=== PATIENT | female | born 1960 | race Caucasian/White ===

== ENCOUNTER → 2017-09-01 10:44 | Outpatient (CLI) | payer MEDICAID | END | disposition home or self-care (01) | LOC: D.MRI 10:44 | DX: M54.16 Radiculopathy, lumbar region (principal) ==

== ENCOUNTER 2017-12-29 21:07 | Emergency (ER) | payer MEDICAID ==
[~2017-12-29] VITALS: Ht 167.6 cm; Wt 109.1 kg
[2017-12-29 21:26] VITALS: Ht 167.6 cm; Wt 109.1 kg
[2017-12-29] MEDS ORDERED: CYCLOBENZAPRINE10 MG (21:28)
[2017-12-29] MEDS ORDERED: CELEBREX50 MG (21:28)
[2017-12-29] MEDS ORDERED: ZESTRIL10 MG PO (21:28)
[2017-12-29] MEDS ORDERED: OMEPRAZOLE20 M1 (21:28)
[2017-12-29] MEDS ORDERED: AMBIEN5 MG (21:28)
[2017-12-29] MEDS ORDERED: NORCO 10-325 TA1 TAB (21:28)
[2017-12-29] MEDS ORDERED: GABAP (21:29)
[2017-12-29] MEDS ORDERED: VALIUM 2 MG TAB2 MG PO (22:00)
[2017-12-29] MEDS ORDERED: ULTRAM50 MG PO (22:00)
[2017-12-29 22:20] VITALS: BP 126/79
== END 2017-12-29 22:20 | disposition home or self-care (01) ==
LOC: D.ER 21:07
DX: S29.012A Strain of muscle and tendon of back wall of thorax, initial encounter (principal); V43.52XA Car driver injured in collision with other type car in traffic accident, initial encounter; Y93.89 Activity, other specified; Y92.410 Unspecified street and highway as the place of occurrence of the external cause; M62.838 Other muscle spasm; I10 Essential (primary) hypertension

== ENCOUNTER 2018-02-09 16:40 | Emergency (ER) | payer MEDICAID ==
[~2018-02-09] VITALS: Ht 160 cm; Wt 99.5 kg
[~2018-02-09 16:40] MED LIST: AMBIEN5 MG; CELEBREX50 MG; CYCLOBENZAPRINE10 MG; GABAP; NORCO 10-325 TA1 TAB; OMEPRAZOLE20 M1; ULTRAM50 MG PO; VALIUM 2 MG TAB2 MG PO; ZESTRIL10 MG PO
[2018-02-09 16:46] VITALS: Ht 160 cm; Wt 99.5 kg
[2018-02-09] MEDS ORDERED: NEURONTIN 300300 MG PO ×2 (16:48→19:34)
[2018-02-09] MEDS ORDERED: HYDROCHLOROTH12.5 M1 (16:49)
[2018-02-09] MEDS ORDERED: ZIPSOR25 MG PO (19:34)
[2018-02-09 20:29] VITALS: BP 135/85
== END 2018-02-09 20:30 | disposition home or self-care (01) ==
LOC: D.ER 16:40
DX: M48.061 Spinal stenosis, lumbar region without neurogenic claudication (principal); M54.12 Radiculopathy, cervical region; M48.02 Spinal stenosis, cervical region; V43.52XA Car driver injured in collision with other type car in traffic accident, initial encounter; Y93.89 Activity, other specified; Y92.410 Unspecified street and highway as the place of occurrence of the external cause

== ENCOUNTER 2018-02-21 18:55 | Emergency (ER) | payer MEDICAID ==
[~2018-02-21] VITALS: Ht 160 cm; Wt 100.7 kg
[~2018-02-21 18:55] MED LIST changes: +HYDROCHLOROTH12.5 M1; +NEURONTIN 300300 MG PO; +ZIPSOR25 MG PO
[2018-02-21 19:24] VITALS: Ht 160 cm; Wt 100.7 kg
[2018-02-21 21:55] VITALS: BP 145/98
== END 2018-02-21 21:56 | disposition home or self-care (01) ==
LOC: D.ER 18:55
DX: M54.31 Sciatica, right side (principal); I10 Essential (primary) hypertension

== ENCOUNTER 2018-03-03 20:22 | Emergency (ER) | payer MEDICAID ==
[~2018-03-03] VITALS: Ht 160 cm; Wt 100.9 kg
[2018-03-03 20:25] VITALS: Ht 160 cm; Wt 100.9 kg
[2018-03-04] MEDS ORDERED: AUGMENTIN 875-11 TAB PO (01:44)
[2018-03-04 01:58] VITALS: BP 131/88
== END 2018-03-04 01:58 | disposition home or self-care (01) ==
LOC: D.ER 20:22
DX: K11.20 Sialoadenitis, unspecified (principal); G95.19 Other vascular myelopathies; I10 Essential (primary) hypertension

== ENCOUNTER 2018-08-31 23:12 | Emergency (ER) | payer MEDICAID ==
[~2018-08-31] VITALS: Ht 160 cm; Wt 98.2 kg
[~2018-08-31 23:12] MED LIST changes: +AUGMENTIN 875-11 TAB PO
[2018-08-31 23:17] VITALS: BP 133/80; Ht 160 cm; Wt 98.2 kg
[2018-08-31] MEDS ORDERED: HYDROCODON-ACE1 EA10 PO (23:19)
== END 2018-09-01 01:05 | disposition home or self-care (01) ==
LOC: D.ER 23:12
DX: S80.02XA Contusion of left knee, initial encounter (principal); W18.30XA Fall on same level, unspecified, initial encounter; Y93.89 Activity, other specified; Y92.89 Other specified places as the place of occurrence of the external cause

== ENCOUNTER → 2018-10-25 12:14 | Outpatient (CLI) | payer MEDICAID ==
[2018-08-31 23:17] VITALS: BMI 38.3
[~2018-10-25 12:14] MED LIST changes: +HYDROCODON-ACE1 EA10 PO
== END | disposition home or self-care (01) ==
LOC: D.MRI 09:00
PROVIDERS: ATTEND Orthopaedic Surgery
DX: S83.242D Other tear of medial meniscus, current injury, left knee, subsequent encounter (principal)

== ENCOUNTER 2018-12-30 06:52 | Day surgery (SDC) | payer MEDICAID ==
[2018-12-24 14:18] LABS: HEMATOCRIT 40.3 % (36.0-48.0); HEMOGLOBIN 13.6 g/dL (12-16); LYMPHOCYTES 46.9 % (15-50); MCH 29.9 pg (26.0-34.0); MCHC 33.7 g/dL (31.0-37.0); MCV 88.6 fL (80.0-100.0); MEAN PLATELET VOLUME 10.1 fL (7.4-10.4); NEUTROPHILS 43.3 % (40-80); PLATELET COUNT 202 10x3/uL (130-400); RBC 4.55 10x6/uL (4.00-5.40); RDW 12.9 % (11.5-14.5); WBC 5.9 10x3/uL (4.8-10.8)
[2018-12-24 14:32] LABS: CALCIUM 8.9 mg/dL (8.5-10.1); CARBON DIOXIDE 27.8 mmol/L (21.0-32.0); CREATININE - SERUM 1.1 mg/dL (0.6-1.3); POTASSIUM - SERUM 3.8 mmol/L (3.5-5.1)
[~2018-12-30] VITALS: Ht 162.6 cm; Wt 96.6 kg
[~2018-12-30 06:52] MED LIST changes: -HYDROCHLOROTH12.5 M1; +HYDROCHLOROTH12.5 M1 PO; +LISINOPRIL10 MG PO; +PEPCID AC20 MG PO
[2018-12-30 07:31] VITALS: BP 122/81; Ht 162.6 cm; Wt 96.6 kg
--- NOTE | 2018-12-30 14:45 | NUR ---
4150 ALL DISCHARGE INSTRUCTIONS GIVEN. VOICES UNDERSTANDING. TAKEN OUT VIA W/C AND ASSISTED TO CAR WITH DAUGHTER. ADVISED TO CALL OR COME BACK IF ANY PROBLEMS.
== END 2018-12-30 14:35 | disposition home or self-care (01) ==
LOC: D.OPS 06:52 → D.PAN 07:30 → D.OPS 08:30
PROVIDERS: ATTEND Orthopaedic Surgery
DX: S83.282A Other tear of lateral meniscus, current injury, left knee, initial encounter (principal); X58.XXXA Exposure to other specified factors, initial encounter

== ENCOUNTER → 2019-09-20 21:18 | Outpatient (CLI) | payer MEDICAID ==
[2018-12-30 07:31] VITALS: BMI 36.6
[2019-09-20 22:16] LABS: BASOPHILS 0.8 % (0-2); EOSINOPHILS 2.5 % (0-7); HEMOGLOBIN 13.3 g/dL (12-16); IMMATURE GRANULOCYTES 0.8 % (0-5); LYMPHOCYTES 33.6 % (15-50); MCH 29.9 pg (26.0-34.0); MCHC 32.4 g/dL (31.0-37.0); MCV 92.1 fL (80.0-100.0); MEAN PLATELET VOLUME 10.8 fL (7.4-10.4); MONOCYTES 7.5 % (2-11); NEUTROPHILS 54.8 % (40-80); RBC 4.45 10x6/uL (4.00-5.40); RDW 13.5 % (11.5-14.5)
[2019-09-20 22:32] LABS: URIC ACID 5.5 mg/dL (2.6-7.2)
[2019-09-20 23:08] LABS: PLATELET COUNT 270 10x3/uL (130-400)
[2019-09-20 23:22] LABS: ERYTHROCYTE SEDIMENTATION RATE 5 mm/hr (0-30)
[2019-09-22 09:12] LABS: ANA REFLEX - DIRECT Negative (Negative)
== END | disposition home or self-care (01) ==
LOC: D.LABREF 21:18
PROVIDERS: ATTEND Clinical Nurse Specialist Family Health
DX: M13.0 Polyarthritis, unspecified (principal)

== ENCOUNTER 2020-04-29 21:34 | Emergency (ER) | payer OTHER ==
[~2020-04-29] VITALS: Ht 162.6 cm; Wt 100.5 kg
[~2020-04-29 21:34] MED LIST changes: +AMOXICILLIN500 M1 PO; +TYLENOL W/CODEI1 TAB PO
[2020-04-29 21:36] VITALS: BP 132/81; Ht 162.6 cm; Wt 100.5 kg
[2020-04-29] MEDS ORDERED: TRAZODONE HCL50 MG PO (21:41)
[2020-04-29] MEDS ORDERED: VOLTAREN100 GM TOPICAL (22:06)
== END 2020-04-29 22:33 | disposition home or self-care (01) ==
LOC: D.ER 21:34
DX: M25.561 Pain in right knee (principal); M17.11 Unilateral primary osteoarthritis, right knee; I10 Essential (primary) hypertension

== ENCOUNTER → 2020-06-11 10:53 | Outpatient (CLI) | payer BC ==
[2020-04-29 21:36] VITALS: BMI 38.0
[~2020-06-11 10:53] MED LIST changes: +TRAZODONE HCL50 MG PO; +VOLTAREN100 GM TOPICAL
== END | disposition home or self-care (01) ==
LOC: D.MRI 10:53
PROVIDERS: ATTEND Clinical Nurse Specialist Family Health
DX: M25.561 Pain in right knee (principal)

== ENCOUNTER 2020-07-12 06:05 | Day surgery (SDC) | payer BC ==
[~2020-07-12] VITALS: Ht 162.6 cm; Wt 96.6 kg
[~2020-07-12 06:05] MED LIST changes: +OMEPRAZOLE20 M1 PO
[2020-07-12 06:39] LABS: BASOPHILS 1.2 % (0-2); EOSINOPHILS 2.9 % (0-7); HEMATOCRIT 38.1 % (36.0-48.0); HEMOGLOBIN 13.1 g/dL (12-16); LYMPHOCYTES 42.5 % (15-50); MCH 30.3 pg (26.0-34.0); MCHC 34.2 g/dL (31.0-37.0); MCV 88.4 fL (80.0-100.0); MEAN PLATELET VOLUME 8.3 fL (7.4-10.4); MONOCYTES 10.1 % (2-11); NEUTROPHILS 43.3 % (40-80); PLATELET COUNT 219 10x3/uL (130-400); RBC 4.31 10x6/uL (4.00-5.40); RDW 15.7 % (11.5-14.5); WBC 5.5 10x3/uL (4.8-10.8)
[2020-07-12 06:49] LABS: ANION GAP 11.4 mmol/L (8-16); CALCIUM 8.7 mg/dL (8.5-10.1); CARBON DIOXIDE 27.4 mmol/L (21.0-32.0); CREATININE - SERUM 0.9 mg/dL (0.6-1.3); POTASSIUM - SERUM 3.8 mmol/L (3.5-5.1)
[2020-07-12 07:20] VITALS: BP 130/84; Ht 162.6 cm; Wt 96.6 kg
--- NOTE | 2020-07-12 12:20 | NUR ---
SPRITE AND ICE PACK TAKEN TO PT BY LUANN Rg DR AT BEDSIDE 1310 DC TEACHING COMPLETE, PT AND DTR VERBALIZE UNDERSTANDING. 1315 PIV REMOVED WITH CATHETER INTACT, DTR HELPING PT TO DRESS. 1340 PT DC'D VIA WC WITH ALL BELONGINGS AND DC PACKET BY THIS NURSE TO POV WITH DTR DRIVING.
--- NOTE | 2020-07-13 09:13 | OP ---
PATIENT NAME: MARTHA REYES MEDICAL RECORD: [id number] :60 LOCATION:[facility] ADMISSION DATE: SURGEON: ROSS MARTINEZ MD DATE OF OPERATION: 07/12/2020 PREOPERATIVE DIAGNOSES: 1. Right knee pain. 2. Chondromalacia. 3. Lateral meniscus tear. POSTOPERATIVE DIAGNOSES: 1. Right knee pain. 2. Chondromalacia. 3. Lateral meniscus tear. PROCEDURE PERFORMED: Right knee scope with partial lateral meniscectomy, chondroplasty, limited synovectomy and removal of loose body. INDICATIONS FOR THE PROCEDURE: The patient is a 59-year-old female with history of right knee pain. She has been having pain for some time now and symptoms are getting worse. MRI was obtained that showed evidence of chondromalacia in the knee as well as a complex tear in the lateral meniscus. I talked to her about these findings and options for conservative versus surgical management. She has elected to proceed with surgery for right knee arthroscopy. Risks, benefits and alternatives of surgery were discussed with the patient and consent was obtained. DESCRIPTION OF PROCEDURE: The patient was met in the holding area where her identity and confirmation of procedure was performed. The right lower extremity was marked. She was taken to the operating room where she was placed supine on the operating table, and anesthesia was administered. Tourniquet was applied to the right thigh and the right leg was positioned in the leg heart. Right lower extremity was prepped and draped in a sterile fashion. The patient received preoperative antibiotics and timeout was performed before initiating the case. On initiation of the case leg was exsanguinated and tourniquet was raised. Total tourniquet time was 60 minutes. We began with the placement of our superior medial portal. The cannula was inserted. The knee was filled with fluid. We then placed our anterolateral portal and inserted the camera. The anterior medial portal was placed under direct visualization. Diagnostic knee arthroscopy was performed. There was significant synovitis throughout the knee. Grade III chondromalacia at the undersurface of the patella and trochlea. There was a large loose body in the lateral gutter. Cartilage fragments were present throughout the knee as well. Medial compartment showed grade II-III chondromalacia at the medial femoral condyle, grade I of the medial tibial plateau. The meniscus appeared to be okay. The ACL was intact. The lateral compartment showed a complex tear of the lateral meniscus with a piece of the anterior horn flipped into the joint. There is grade III chondromalacia at the lateral femoral condyle and grade II of the lateral tibial plateau. A biter was used to perform a partial meniscectomy and the meniscus was then debrided with the shaver. Chondroplasty was performed of the lateral femoral condyle and the lateral tibial plateau. We then moved medially and performed chondroplasty of the medial femoral condyle. There was also a medial plica present. We moved to the patellofemoral space. We performed chondroplasty of the undersurface of the patella and then used the lateral portal as a working portal to retrieve the loose body in the lateral gutter. The knee was irrigated thoroughly with OPERATIVE REPORT [id number] MARTHA REYES. Instruments were removed and fluid was drained from the knee. The portal sites were injected with 0.25% Marcaine with epinephrine. These were then closed with nylon suture. A sterile dressing was placed. The patient was turned back over to anesthesia where she was awakened and taken to recovery room in stable condition. POSTOPERATIVE PLAN: The patient is going to return home with her family. She may be weightbearing as tolerated on the right lower extremity. We will plan to start physical therapy next week. We will see her back in clinic in 2 weeks. COMPLICATIONS: None. ESTIMATED BLOOD LOSS: 5 mL. ANESTHESIA: General. TRANSINT:[id number] Voice Confirmation ID: [id number] DOCUMENT ID: [id number] ROSS MARTINEZ MD at 0913 CC: [id number] DICTATION DATE: 07/12/20 1654 PLATING DEPARTMENT HELPER: 07/13/20 0029 [facility] 07/12/20 [facility] [address] [place] [address]
== END 2020-07-12 13:40 | disposition home or self-care (01) ==
LOC: D.OPS 06:05
PROVIDERS: Anesthesiology; ATTEND Orthopaedic Surgery
DX: S83.281A Other tear of lateral meniscus, current injury, right knee, initial encounter (principal); X58.XXXA Exposure to other specified factors, initial encounter; M94.261 Chondromalacia, right knee; M17.0 Bilateral primary osteoarthritis of knee; M25.562 Pain in left knee; M25.561 Pain in right knee